=== PATIENT | female | born 1980 | race African-American/Black ===

== ENCOUNTER 2021-05-26 08:14 | Emergency (ER) | payer OTHER, SELFPAY ==
[2021-05-26] MEDS ORDERED: Meclizine HCl 25 MG TAB ONE (08:46)
[2021-05-26 09:08] LABS: #Eosinphils 0.3 thou/uL (0.0-0.7); #Monocytes 0.5 thou/uL (0.11-0.59); #Neutrophils 4.3 thou/uL (1.40-6.50); %Basophils 0.1 % (0.0-1.0); %Eosinophils 4.3 % (0.0-10.0); %Lymphocytes 16.8 % (21.0-51.0); %Monocytes 8.1 % (0.0-10.0); %Neutrophils 70.6 % (42.0-75.0); Hemoglobin 11.7 g/dL (12.0-16.0); Mean Corpuscular HGB CONC 32.7 g/dL (32.0-36.0); Mean Corpuscular Hemoglobin 27.5 pg (27.0-31.0); Mean Corpuscular Volume 84.2 fL (78.0-98.0); Platelet Count 267 thou/uL (130-400); RBC Distribution Width 13.5 % (11.5-14.5); Red Blood Cell (RBC) Count 4.27 mill/uL (4.20-5.40); White Blood Cell (WBC) Count 6.1 thou/uL (4.8-10.8)
[2021-05-26 09:24] LABS: BHCG - Serum Negative (NEGATIVE)
[2021-05-26 09:25] LABS: Pregs Control Background? CLEAR/WHITE (CLR/WHITE); Pregs Control Bar Appear? YES (CONTROL BAR)
[2021-05-26 09:30] LABS: ALT (SGPT) 22 U/L (8-55); AST (SGOT) 18 U/L (5-34); Albumin 4.2 g/dL (3.5-5.0); Alkaline Phosphatase 71 U/L (40-110); Anion Gap 14 mmol/L (10-20); BUN (Urea Nitrogen) 11 mg/dL (7.0-18.7); Bilirubin, Total 0.7 mg/dL (0.2-1.2); Calc. Creatinine Clearance 0 mL/min (70-130); Calcium 9.3 mg/dL (7.8-10.44); Carbon Dioxide 27 mmol/L (22-29); Chloride 102 mmol/L (98-107); Globulin 3.4 g/dL (2.4-3.5); Glucose 97 mg/dL (70-105); Potassium 3.5 mmol/L (3.5-5.1); Protein, Total 7.6 g/dL (6.0-8.3); Sodium 139 mmol/L (136-145)
[2021-05-26] MEDS ORDERED: Labetalol HCl 100 MG/20 ML VIAL ONE ×2 (10:57→10:58)
[2021-05-26] MEDS ORDERED: Acetaminophen 500 MG TAB ONE (12:30)
== END 2021-05-26 12:39 | disposition home or self-care (01) ==
LOC: ERS 08:14
DX: I10 Essential (primary) hypertension (principal); R42 Dizziness and giddiness
CPT/HCPCS: 36415; 80053; 84484; 84703; 85025; 93005; 96374

== ENCOUNTER 2021-06-11 15:21 | Emergency (ER) | payer OTHER, SELFPAY ==
[2021-06-11 18:00] LABS: Bilirubin Negative (Negative); Blood, Urine Negative (Negative); Clarity Clear (Clear); Glucose, Urine (Dipstick) Normal (Negative); Ketone, Urine Negative (Negative); Leukocyte Negative Leu/uL (Negative); Nitrite Negative (Negative); Protein, Urine (Dipstick) Negative (Neg-Trace); Specific Gravity, Urine 1.006 (1.002-1.036); Urobilinogen Normal mg/dL (Less than 2); pH, Urine 6.5 (5.0-9.0)
[2021-06-11 18:03] LABS: Pregnancy Test - Urine (BHCG) Negative (Negative); Pregu Control Background? CLEAR/WHITE (CLR/WHITE); Pregu Control Bar Appear? YES (CONTROL BAR); Specific Gravity 1.006 (1.002-1.036)
[2021-06-11] MEDS ORDERED: Ketorolac Tromethamine 30 MG/ML VIAL ONE (18:38)
== END 2021-06-11 18:55 | disposition home or self-care (01) ==
LOC: ERS 15:21
DX: M54.50 Low back pain, unspecified (principal); I10 Essential (primary) hypertension; V89.2XXA Person injured in unspecified motor-vehicle accident, traffic, initial encounter
CPT/HCPCS: 81003; 81025; 96372; 99283; J1885

== ENCOUNTER 2021-06-29 21:35 | Inpatient (IN) | payer BC, SELFPAY ==
[2021-06-29 22:34] LABS: #Eosinphils 0.3 thou/uL (0.0-0.7); #Lymphocytes 1.3 thou/uL (1.20-3.40); #Monocytes 0.4 thou/uL (0.11-0.59); #Neutrophils 2.6 thou/uL (1.40-6.50); %Basophils 0.8 % (0.0-1.0); %Lymphocytes 27.6 % (21.0-51.0); %Monocytes 9.2 % (0.0-10.0); %Neutrophils 56.4 % (42.0-75.0); Hemoglobin 12.3 g/dL (12.0-16.0); Mean Corpuscular HGB CONC 33.7 g/dL (32.0-36.0); Mean Corpuscular Hemoglobin 28.6 pg (27.0-31.0); Mean Corpuscular Volume 84.9 fL (78.0-98.0); Mean Platelet Volume 8.2 fL (7.4-10.4); Platelet Count 225 thou/uL (130-400); RBC Distribution Width 13.8 % (11.5-14.5); Red Blood Cell (RBC) Count 4.31 mill/uL (4.20-5.40); White Blood Cell (WBC) Count 4.6 thou/uL (4.8-10.8)
[2021-06-29 22:50] LABS: ALT (SGPT) 18 U/L (8-55); AST (SGOT) 18 U/L (5-34); Albumin 4.1 g/dL (3.5-5.0); Alkaline Phosphatase 71 U/L (40-110); Anion Gap 13 mmol/L (10-20); BUN (Urea Nitrogen) 15 mg/dL (7.0-18.7); Bilirubin, Total 0.5 mg/dL (0.2-1.2); Calc. Creatinine Clearance 0 mL/min (70-130); Calcium 9.3 mg/dL (7.8-10.44); Carbon Dioxide 28 mmol/L (22-29); Chloride 98 mmol/L (98-107); Globulin 3.1 g/dL (2.4-3.5); Glucose 110 mg/dL (70-105); Potassium 3.7 mmol/L (3.5-5.1); Protein, Total 7.2 g/dL (6.0-8.3); Sodium 135 mmol/L (136-145)
[2021-06-29] MEDS ORDERED: Amlodipine 10 MG TAB PO SCH (23:00)
[2021-06-29 23:10] LABS: CKMB 3.2 ng/mL (0-6.6)
[2021-06-29] MEDS ORDERED: diphenhydrAMINE 50 MG/ML VIAL ONE (23:48)
[2021-06-29] MEDS ORDERED: Metoclopramide HCl 10 MG/2 ML VIAL ONE (23:48)
[2021-06-29] MEDS ORDERED: Aspirin 325 MG TAB ONE (23:48)
[2021-06-30 04:36] LABS: Troponin I 0.052 ng/mL (< 0.028)
[2021-06-30 08:01] LABS: SARS-CoV-2 NAA Rapid Test DETECTED (NotDetected)
[2021-06-30 08:02] LABS: Troponin I 0.058 ng/mL (< 0.028)
[2021-06-30] MEDS ORDERED: Acetaminophen 325 MG TAB PO PRN (11:30)
[2021-06-30] MEDS ORDERED: Enoxaparin Sodium 40 MG/0.4 ML SYRINGE SC SCH (11:30)
[2021-06-30] MEDS ORDERED: Ondansetron PF 4 MG/2 ML Vial IVP PRN (11:30)
[2021-06-30] MEDS ORDERED: hydrALAZINE 20 MG/ML VIAL SLOW IVP PRN (11:42)
[2021-06-30] MEDS ORDERED: Amlodipine 10 MG TAB PO SCH (11:45)
[2021-06-30] MEDS ORDERED: Enoxaparin Sodium 40 MG/0.4 ML SYRINGE ONE (12:06)
[2021-06-30] MEDS ORDERED: Amlodipine 5 MG TAB ONE (12:06)
[2021-06-30 14:10] LABS: Troponin I 0.066 ng/mL (< 0.028)
[2021-06-30] MEDS ORDERED: hydrALAZINE 20 MG/ML VIAL ONE (15:43)
[2021-06-30] MEDS ORDERED: Meclizine HCl 25 MG TAB ONE ×2 (15:43→21:43)
[2021-06-30] MEDS: Meclizine HCl 25 MG TAB PO SCH ×2 (15:54→21:47)
[2021-06-30 20:05] LABS: Troponin I 0.075 ng/mL (< 0.028)
[2021-06-30] MEDS ORDERED: Acetaminophen 325 MG TAB ONE ×2 (21:44)
[2021-07-01 02:24] VITALS: BMI 41.4
[2021-07-01 06:25] LABS: Band 2 % (5-11); Eosinophils 5 % (0-10); Lymphocytes 31 % (21-51); MDiff Complete? YES; Mean Corpuscular HGB CONC 32.4 g/dL (32.0-36.0); Mean Corpuscular Hemoglobin 27.7 pg (27.0-31.0); Mean Corpuscular Volume 85.4 fL (78.0-98.0); Mean Platelet Volume 8.4 fL (7.4-10.4); Monocytes 4 % (0-10); Neutrophil 58 % (42-75); Platelet Count 241 thou/uL (130-400); Platelet Morphology Comment Appears Adequate; RBC Distribution Width 13.7 % (11.5-14.5); RBC Morphology Normal; Red Blood Cell (RBC) Count 4.34 mill/uL (4.20-5.40); White Blood Cell (WBC) Count 5.3 thou/uL (4.8-10.8)
[2021-07-01 06:34] LABS: Anion Gap 12 mmol/L (10-20); BUN (Urea Nitrogen) 12 mg/dL (7.0-18.7); Calc. Creatinine Clearance 156 mL/min (70-130); Calcium 9.1 mg/dL (7.8-10.44); Carbon Dioxide 26 mmol/L (22-29); Chloride 100 mmol/L (98-107); Glucose 96 mg/dL (70-105); Potassium 3.4 mmol/L (3.5-5.1); Sodium 135 mmol/L (136-145)
[2021-07-01] MEDS: Meclizine HCl 25 MG TAB PO SCH ×3 (09:07→20:13)
[2021-07-01] MEDS: Amlodipine 10 MG TAB PO SCH (09:07)
[2021-07-01] MEDS: Enoxaparin Sodium 40 MG/0.4 ML SYRINGE SC SCH (09:07)
[2021-07-02] MEDS ORDERED: Potassium Chloride 20 MEQ TAB PO SCH (08:30)
[2021-07-02] MEDS: Meclizine HCl 25 MG TAB PO SCH ×3 (09:12→21:32)
[2021-07-02] MEDS: Amlodipine 10 MG TAB PO SCH (09:12)
[2021-07-02] MEDS: Enoxaparin Sodium 40 MG/0.4 ML SYRINGE SC SCH (09:12)
[2021-07-02] MEDS ORDERED: hydrALAZINE 20 MG/ML VIAL SLOW IVP SCH (13:45)
[2021-07-02] MEDS ORDERED: Atorvastatin Calcium 20 MG TAB PO SCH (21:00)
[2021-07-03 03:47] VITALS: BP 144/90
[2021-07-03 05:41] VITALS: TEMP 98.5
[2021-07-03 06:36] LABS: Cardiac Risk 4.9 (Less than 4.5)
[2021-07-03] MEDS ORDERED: Aspirin 81 mg Enteric Coated Tablet PO SCH (09:00)
[2021-07-03] MEDS: Enoxaparin Sodium 40 MG/0.4 ML SYRINGE SC SCH (10:16)
[2021-07-03] MEDS: Amlodipine 10 MG TAB PO SCH (10:16)
[2021-07-03] MEDS: Meclizine HCl 25 MG TAB PO SCH (10:16)
== END 2021-07-03 11:07 | disposition home or self-care (01) | DRG 280 ==
LOC: ERS 21:35 → ERHOLD 06-30 00:57 → 2SW 07-01 02:03
PROVIDERS: ADMIT Student in an Organized Health Care Education/Training Program; ATTEND Family Medicine
DX: I16.0 Hypertensive urgency (principal); U07.1 COVID-19; I21.A1 Myocardial infarction type 2; Z68.41 Body mass index [BMI] 40.0-44.9, adult; I10 Essential (primary) hypertension; H81.10 Benign paroxysmal vertigo, unspecified ear; I08.1 Rheumatic disorders of both mitral and tricuspid valves; E66.9 Obesity, unspecified; E87.6 Hypokalemia; Z79.899 Other long term (current) drug therapy
CPT/HCPCS: 36415; 70450; 70551; 80048; 80053; 80061; 82553; 83880; 84484; 85007; 85025; 85027; 93005; 93306; 96374; 96375; J0360; J1200; J1650; J2765; U0002

== ENCOUNTER 2021-09-29 15:50 | Inpatient (IN) | payer BC ==
[~2021-09-29 15:50] MED LIST: Iopamidol-370 76% 500 ML 1 ML ONE
[2021-09-29 16:30] LABS: #Eosinphils 0.1 thou/uL (0.0-0.7); #Lymphocytes 1.4 thou/uL (1.20-3.40); #Monocytes 0.5 thou/uL (0.11-0.59); #Neutrophils 6.7 thou/uL (1.40-6.50); %Basophils 0.1 % (0.0-1.0); %Lymphocytes 15.7 % (21.0-51.0); %Monocytes 6.2 % (0.0-10.0); %Neutrophils 77.1 % (42.0-75.0); Hemoglobin 12.2 g/dL (12.0-16.0); Mean Corpuscular HGB CONC 32.2 g/dL (32.0-36.0); Mean Corpuscular Hemoglobin 27.6 pg (27.0-31.0); Mean Corpuscular Volume 85.7 fL (78.0-98.0); Mean Platelet Volume 7.8 fL (7.4-10.4); Platelet Count 245 thou/uL (130-400); RBC Distribution Width 14.1 % (11.5-14.5); Red Blood Cell (RBC) Count 4.43 mill/uL (4.20-5.40); White Blood Cell (WBC) Count 8.6 thou/uL (4.8-10.8)
[2021-09-29 16:55] LABS: ALT (SGPT) 15 U/L (8-55); AST (SGOT) 16 U/L (5-34); Albumin 4.3 g/dL (3.5-5.0); Alkaline Phosphatase 63 U/L (40-110); Anion Gap 16 mmol/L (10-20); BUN (Urea Nitrogen) 11 mg/dL (7.0-18.7); Bilirubin, Total 0.3 mg/dL (0.2-1.2); Calc. Creatinine Clearance 0 mL/min (70-130); Calcium 9.4 mg/dL (7.8-10.44); Carbon Dioxide 22 mmol/L (22-29); Chloride 101 mmol/L (98-107); Globulin 3.6 g/dL (2.4-3.5); Glucose 125 mg/dL (70-105); Lipase 47 U/L (8-78); Potassium 3.8 mmol/L (3.5-5.1); Protein, Total 7.9 g/dL (6.0-8.3); Sodium 135 mmol/L (136-145)
[2021-09-29] MEDS ORDERED: Ondansetron PF 4 MG/2 ML Vial ONE (18:50)
[2021-09-29 19:37] LABS: Bilirubin Negative (Negative); Blood, Urine Negative (Negative); Clarity Clear (Clear); Glucose, Urine (Dipstick) Normal (Negative); Ketone, Urine Negative (Negative); Leukocyte Negative Leu/uL (Negative); Nitrite Negative (Negative); Protein, Urine (Dipstick) Negative (Neg-Trace); Specific Gravity, Urine 1.004 (1.002-1.036); Urobilinogen Normal mg/dL (Less than 2)
[2021-09-29 19:40] LABS: Pregnancy Test - Urine (BHCG) Negative (Negative); Pregu Control Background? CLEAR/WHITE (CLR/WHITE); Pregu Control Bar Appear? YES (CONTROL BAR); Specific Gravity 1.004 (1.002-1.036)
[2021-09-29] MEDS ORDERED: Morphine 4 MG/ML VIAL SLOW IVP PRN ×2 (20:50→22:17)
[2021-09-29] MEDS ORDERED: Sodium Chloride 0.9% 1,000 ML IV SCH (21:00)
[2021-09-29 21:24] LABS: INR-International Normal Ratio 1.1; Prothrombin Time 14.7 sec (12.0-14.7)
[2021-09-29 21:25] LABS: PTT 67.9 sec (22.9-36.1)
[2021-09-29] MEDS ORDERED: Enoxaparin Sodium 100 MG/ML SYRINGE ONE (21:43)
[2021-09-29] MEDS ORDERED: Ondansetron PF 4 MG/2 ML Vial IVP PRN (22:18)
[2021-09-29] MEDS ORDERED: Ondansetron ODT 4 MG TAB PO PRN (22:18)
[2021-09-29] MEDS ORDERED: hydrALAZINE 20 MG/ML VIAL SLOW IVP PRN (22:19)
[2021-09-29] MEDS ORDERED: Valsartan 80 MG TAB PO SCH (23:30)
[2021-09-30 00:04] VITALS: BMI 39.7
[2021-09-30 06:00] LABS: Anion Gap 15 mmol/L (10-20); BUN (Urea Nitrogen) 10 mg/dL (7.0-18.7); Calc. Creatinine Clearance 101 mL/min (70-130); Calcium 9.1 mg/dL (7.8-10.44); Carbon Dioxide 22 mmol/L (22-29); Chloride 103 mmol/L (98-107); Glucose 114 mg/dL (70-105); Sodium 136 mmol/L (136-145)
[2021-09-30 06:04] LABS: #Eosinphils 0.1 thou/uL (0.0-0.7); #Lymphocytes 1.7 thou/uL (1.20-3.40); #Monocytes 0.5 thou/uL (0.11-0.59); #Neutrophils 4.8 thou/uL (1.40-6.50); %Basophils 0.3 % (0.0-1.0); %Lymphocytes 23.9 % (21.0-51.0); %Monocytes 6.9 % (0.0-10.0); %Neutrophils 66.9 % (42.0-75.0); Hemoglobin 12.4 g/dL (12.0-16.0); Mean Corpuscular HGB CONC 32.7 g/dL (32.0-36.0); Mean Corpuscular Hemoglobin 27.9 pg (27.0-31.0); Mean Corpuscular Volume 85.4 fL (78.0-98.0); Mean Platelet Volume 8.1 fL (7.4-10.4); Platelet Count 230 thou/uL (130-400); RBC Distribution Width 14.3 % (11.5-14.5); Red Blood Cell (RBC) Count 4.44 mill/uL (4.20-5.40); White Blood Cell (WBC) Count 7.1 thou/uL (4.8-10.8)
[2021-09-30] MEDS: Enoxaparin Sodium 120 MG/0.8 ML SYRINGE SC SCH ×2 (08:04→19:24)
[2021-09-30] MEDS: Amlodipine 10 MG TAB PO SCH (08:04)
[2021-09-30] MEDS ORDERED: Acetaminophen 325 MG TAB PO PRN (09:40)
[2021-09-30 10:14] LABS: INR-International Normal Ratio 1.2; Prothrombin Time 14.8 sec (12.0-14.7)
[2021-09-30 10:15] LABS: D-Dimer Test 0.46 *mcg/mL (0.27-0.43)
[2021-09-30] MEDS ORDERED: Atorvastatin Calcium 20 MG TAB PO SCH (21:00)
[2021-09-30] MEDS ORDERED: Valsartan 80 MG TAB PO SCH (21:00)
[2021-10-01 05:21] LABS: Anion Gap 14 mmol/L (10-20); BUN (Urea Nitrogen) 12 mg/dL (7.0-18.7); Calc. Creatinine Clearance 108 mL/min (70-130); Carbon Dioxide 25 mmol/L (22-29); Chloride 102 mmol/L (98-107); Glucose 104 mg/dL (70-105); Potassium 4.5 mmol/L (3.5-5.1); Sodium 136 mmol/L (136-145)
[2021-10-01] MEDS: Amlodipine 10 MG TAB PO SCH (08:40)
[2021-10-01] MEDS: Enoxaparin Sodium 120 MG/0.8 ML SYRINGE SC SCH (08:41)
[2021-10-01] MEDS ORDERED: Triamterene/Hydrochlorothiazide 37.5 mg/25 mg Tablet PO SCH (09:00)
[2021-10-01 11:11] VITALS: BP 158/101; TEMP 98.4
[2021-10-02 13:24] LABS: Protein C Activity 98 % (78-152)
[2021-10-02 13:26] LABS: HEX PHOS LA Tube 1 108.4 SEC; HEX PHOS LA Tube 2 58.6 SEC; Hexagonal Phospholipid Neut 49.8 SEC (0-8.0)
[2021-10-02 14:16] LABS: PTT 107.2 sec (22.9-36.1)
[2021-10-03 13:42] LABS: Hemoglobin A2 2.4 % (1.8-3.2); Hemoglobin F 0 % (0.0-2.0)
[2021-10-06 17:40] LABS: Cardiolipin IgM Ab 1.3 MPL-U/mL (<10 Negative); EliA APS New Method **** NEW METHOD ****
[2021-10-06 17:43] LABS: EliA APS New Method **** NEW METHOD ****; beta-2-Glycoprotein I IgM Abs Less than 2.9 U/mL (<7 Negative)
[2021-10-17 16:14] LABS: Activated Protein C Resistance 2.4 ratio (.)
== END 2021-10-01 15:34 | disposition home or self-care (01) | DRG 815 ==
LOC: ERS 15:50 → 2SW 20:40 → OBSVTOIN 10-01 10:51
PROVIDERS: ADMIT Student in an Organized Health Care Education/Training Program; ATTEND Internal Medicine
DX: D73.5 Infarction of spleen (principal); Z68.41 Body mass index [BMI] 40.0-44.9, adult; I10 Essential (primary) hypertension; E66.01 Morbid (severe) obesity due to excess calories; E78.5 Hyperlipidemia, unspecified; Z79.82 Long term (current) use of aspirin; Z79.899 Other long term (current) drug therapy
CPT/HCPCS: 36415; 74177; 80048; 80053; 81003; 81025; 83021; 83090; 83690; 85025; 85240; 85300; 85303; 85305; 85307; 85379; 85598; 85610; 85730; 86146; 86147; 93005; 96372; 96374; 96375; G0378; J1650; J2270; J2405; J7050; Q9967

== ENCOUNTER 2022-02-26 23:45 | Emergency (ER) | payer BC ==
[2022-02-27] MEDS ORDERED: Ketorolac Tromethamine 30 MG/ML VIAL ONE (05:27)
== END 2022-02-27 05:48 | disposition home or self-care (01) ==
LOC: ERS 23:45
DX: M25.561 Pain in right knee (principal)
CPT/HCPCS: 96372; J1885

== ENCOUNTER 2022-11-01 09:04 | Observation (INO) | payer BC ==
[2022-11-01 09:54] LABS: #Eosinphils 0.2 thou/uL (0.0-0.7); #Monocytes 0.5 thou/uL (0.11-0.59); #Neutrophils 3.7 thou/uL (1.40-6.50); %Basophils 0.6 % (0.0-1.0); %Eosinophils 3.9 % (0.0-10.0); %Lymphocytes 27.4 % (21.0-51.0); %Monocytes 7.7 % (0.0-10.0); %Neutrophils 60.1 % (42.0-75.0); Hemoglobin 13.1 g/dL (12.0-16.0); Mean Corpuscular HGB CONC 31.6 g/dL (32.0-36.0); Mean Corpuscular Hemoglobin 28.4 pg (27.0-31.0); Mean Platelet Volume 10.5 fL (7.4-10.4); Platelet Count 317 10x3/uL (130-400); Red Blood Cell (RBC) Count 4.61 mill/uL (4.20-5.40); White Blood Cell (WBC) Count 6.2 10x3/uL (4.8-10.8)
[2022-11-01 10:16] LABS: ALT (SGPT) 17 U/L (8-55); AST (SGOT) 19 U/L (5-34); Albumin 4.3 g/dL (3.5-5.0); Alkaline Phosphatase 79 U/L (40-110); Anion Gap 13 mmol/L (10-20); BUN (Urea Nitrogen) 11 mg/dL (7.0-18.7); Bilirubin, Total 0.3 mg/dL (0.2-1.2); Calc. Creatinine Clearance 0 mL/min (70-130); Calcium 9.5 mg/dL (7.8-10.44); Carbon Dioxide 27 mmol/L (22-29); Chloride 100 mmol/L (98-107); Estimated GFR 71; Globulin 3.6 g/dL (2.4-3.5); Glucose 97 mg/dL (70-105); Potassium 3.6 mmol/L (3.5-5.1); Protein, Total 7.9 g/dL (6.0-8.3); Sodium 136 mmol/L (136-145)
[2022-11-01 10:39] LABS: Bacteria/HPF None Seen HPF (None Seen); Bilirubin Negative (Negative); Blood, Urine 3+ (Negative); Clarity Clear (Clear); Glucose, Urine (Dipstick) Normal (Negative); Ketone, Urine Negative (Negative); Leukocyte Negative Leu/uL (Negative); Nitrite Negative (Negative); Protein, Urine (Dipstick) Negative (Neg-Trace); RBC/HPF None Seen HPF (0-3); Specific Gravity, Urine 1.002 (1.002-1.036); Squamous Epithelial 0-3 HPF (0-3); Urobilinogen Normal mg/dL (Less than 2); WBC/HPF 0-3 HPF (0-3); pH, Urine 5.5 (5.0-9.0)
[2022-11-01] MEDS ORDERED: Amlodipine 5 MG TAB ONE (11:29)
[2022-11-01] MEDS ORDERED: Metoclopramide HCl 10 MG/2 ML VIAL ONE (11:29)
[2022-11-01] MEDS ORDERED: diphenhydrAMINE 50 MG/ML VIAL ONE (11:29)
[2022-11-01] MEDS ORDERED: Acetaminophen 500 MG TAB ONE (11:29)
[2022-11-01] MEDS ORDERED: Aspirin Chewable 81 MG TAB ONE (12:37)
[2022-11-01 12:38] LABS: Specific Gravity 1.002 (1.002-1.036)
[2022-11-01] MEDS ORDERED: hydrALAZINE 20 MG/ML VIAL ONE (12:39)
[2022-11-01 12:45] LABS: Pregnancy Test - Urine (BHCG) Negative (Negative); Pregu Control Background? CLEAR/WHITE (CLR/WHITE); Pregu Control Bar Appear? YES (CONTROL BAR)
[2022-11-01] MEDS ORDERED: Ondansetron ODT 4 MG TAB PO PRN (13:04)
[2022-11-01] MEDS ORDERED: Ondansetron PF 4 MG/2 ML Vial IVP PRN (13:04)
[2022-11-01] MEDS ORDERED: hydrALAZINE 20 MG/ML VIAL SLOW IVP PRN (13:07)
[2022-11-01 14:25] LABS: Magnesium 2.1 mg/dL (1.6-2.6)
[2022-11-01 15:06] VITALS: BMI 43.8
[2022-11-01 18:40] LABS: INR-International Normal Ratio 1.2; Prothrombin Time 15.3 sec (12.0-14.7)
[2022-11-01] MEDS ORDERED: Warfarin Sodium 2.5 MG TAB PO SCH (19:00)
[2022-11-01] MEDS: Atorvastatin Calcium 20 MG TAB PO SCH (20:43)
[2022-11-01] MEDS: Acetaminophen 325 MG TAB PO PRN (23:46)
[2022-11-02 05:14] LABS: #Eosinphils 0.2 thou/uL (0.0-0.7); #Monocytes 0.6 thou/uL (0.11-0.59); #Neutrophils 4.1 thou/uL (1.40-6.50); %Basophils 0.3 % (0.0-1.0); %Eosinophils 3.6 % (0.0-10.0); %Lymphocytes 23.1 % (21.0-51.0); %Monocytes 9.2 % (0.0-10.0); %Neutrophils 63.5 % (42.0-75.0); Mean Corpuscular HGB CONC 31.4 g/dL (32.0-36.0); Mean Corpuscular Hemoglobin 27.7 pg (27.0-31.0); Mean Corpuscular Volume 88.3 fl (78.0-98.0); Mean Platelet Volume 10.6 fL (7.4-10.4); Platelet Count 319 10x3/uL (130-400); RBC Distribution Width 14.3 % (11.5-14.5); Red Blood Cell (RBC) Count 4.69 mill/uL (4.20-5.40); White Blood Cell (WBC) Count 6.4 10x3/uL (4.8-10.8)
[2022-11-02 05:29] LABS: INR-International Normal Ratio 1.1
[2022-11-02 05:37] LABS: Anion Gap 12 mmol/L (10-20); BUN (Urea Nitrogen) 9 mg/dL (7.0-18.7); Calc. Creatinine Clearance 166 mL/min (70-130); Calcium 9.1 mg/dL (7.8-10.44); Carbon Dioxide 24 mmol/L (22-29); Chloride 104 mmol/L (98-107); Estimated GFR 86; Glucose 109 mg/dL (70-105); Potassium 3.4 mmol/L (3.5-5.1); Sodium 137 mmol/L (136-145)
[2022-11-02] MEDS ORDERED: Potassium Chloride 20 MEQ TAB PO SCH (07:45)
[2022-11-02] MEDS ORDERED: Electrolyte Replacement Protocol 1 EACH FS SCH (07:45)
[2022-11-02] MEDS: NIFEdipine XL 90 MG TAB PO SCH (08:47)
[2022-11-02] MEDS: hydrALAZINE 25 MG TAB PO SCH ×3 (08:48→20:32)
[2022-11-02] MEDS: Triamterene/Hydrochlorothiazide 37.5 mg/25 mg Tablet PO SCH (08:48)
[2022-11-02] MEDS: Aspirin Chewable 81 MG TAB PO SCH (08:49)
[2022-11-02] MEDS: Acetaminophen 325 MG TAB PO PRN ×3 (08:49→20:33)
[2022-11-02] MEDS ORDERED: Amlodipine 10 MG TAB PO SCH (09:00)
[2022-11-02] MEDS ORDERED: Warfarin Sodium 5 MG TAB PO SCH (17:00)
[2022-11-02] MEDS: Atorvastatin Calcium 20 MG TAB PO SCH (20:34)
[2022-11-02] MEDS ORDERED: SUMAtriptan Succinate 6 MG/0.5 ML VIAL SC SCH (22:00)
[2022-11-03 05:11] LABS: #Eosinphils 0.1 thou/uL (0.0-0.7); #Monocytes 0.6 thou/uL (0.11-0.59); #Neutrophils 6.1 thou/uL (1.40-6.50); %Basophils 0.4 % (0.0-1.0); %Eosinophils 1.3 % (0.0-10.0); %Neutrophils 71.9 % (42.0-75.0); Hemoglobin 13.5 g/dL (12.0-16.0); Mean Corpuscular Hemoglobin 28.1 pg (27.0-31.0); Mean Corpuscular Volume 87.7 fl (78.0-98.0); Mean Platelet Volume 10.4 fL (7.4-10.4); Platelet Count 352 10x3/uL (130-400); RBC Distribution Width 14.4 % (11.5-14.5); Red Blood Cell (RBC) Count 4.81 mill/uL (4.20-5.40); White Blood Cell (WBC) Count 8.4 10x3/uL (4.8-10.8)
[2022-11-03 05:43] LABS: INR-International Normal Ratio 1.2; Prothrombin Time 15.4 sec (12.0-14.7)
[2022-11-03 05:44] LABS: Anion Gap 12 mmol/L (10-20); BUN (Urea Nitrogen) 11 mg/dL (7.0-18.7); Calc. Creatinine Clearance 144 mL/min (70-130); Calcium 9.6 mg/dL (7.8-10.44); Carbon Dioxide 25 mmol/L (22-29); Chloride 101 mmol/L (98-107); Estimated GFR 73; Glucose 116 mg/dL (70-105); Magnesium 2.1 mg/dL (1.6-2.6); Potassium 3.3 mmol/L (3.5-5.1); Sodium 135 mmol/L (136-145)
[2022-11-03] MEDS: Triamterene/Hydrochlorothiazide 37.5 mg/25 mg Tablet PO SCH (07:22)
[2022-11-03] MEDS: Aspirin Chewable 81 MG TAB PO SCH (07:23)
[2022-11-03] MEDS: hydrALAZINE 25 MG TAB PO SCH (07:24)
[2022-11-03] MEDS: NIFEdipine XL 90 MG TAB PO SCH (07:25)
[2022-11-03] MEDS: Acetaminophen 325 MG TAB PO PRN (07:26)
[2022-11-03 07:32] VITALS: BP 135/74
[2022-11-03 07:41] VITALS: TEMP 99
[2022-11-03] MEDS ORDERED: Potassium Chloride 20 MEQ TAB PO SCH (08:00)
[2022-11-04] MEDS ORDERED: Warfarin Sodium 2.5 MG TAB PO SCH (17:00)
== END 2022-11-03 10:46 | disposition home or self-care (01) ==
LOC: ERS 09:04 → 2SW 13:01
PROVIDERS: ADMIT Family Medicine; ATTEND Family Medicine
DX: I16.0 Hypertensive urgency (principal); R07.89 Other chest pain; E78.5 Hyperlipidemia, unspecified; E87.6 Hypokalemia; I11.9 Hypertensive heart disease without heart failure; E66.9 Obesity, unspecified; Z68.38 Body mass index [BMI] 38.0-38.9, adult; Z86.79 Personal history of other diseases of the circulatory system; Z79.01 Long term (current) use of anticoagulants; Z79.899 Other long term (current) drug therapy
CPT/HCPCS: 36415; 70450; 71045; 76770; 80048; 80053; 81003; 81015; 81025; 82553; 83735; 84443; 84484; 85025; 85610; 93005; 93306; 93976; 94760; 96365; 96372; 96375; 96376; G0378; J0360; J1200; J2765; J3030; Q0162

== ENCOUNTER 2023-01-30 17:46 | Emergency (ER) | payer BC ==
[2023-01-30] MEDS ORDERED: Acetaminophen 500 MG TAB ONE (19:56)
[2023-01-30 20:53] LABS: SARS-CoV-2 NAA Rapid Test DETECTED (NotDetected)
== END 2023-01-30 21:09 | disposition home or self-care (01) ==
LOC: ERS 17:46
DX: U07.1 COVID-19 (principal); I10 Essential (primary) hypertension
CPT/HCPCS: 99283

== ENCOUNTER 2023-03-04 10:04 | Emergency (ER) | payer BC ==
[2023-03-04 10:49] LABS: #Eosinphils 0.1 thou/uL (0.0-0.7); #Monocytes 0.7 thou/uL (0.11-0.59); #Neutrophils 6.1 thou/uL (1.40-6.50); %Basophils 0.2 % (0.0-1.0); %Eosinophils 0.6 % (0.0-10.0); %Lymphocytes 15.6 % (21.0-51.0); %Monocytes 7.9 % (0.0-10.0); %Neutrophils 74.2 % (42.0-75.0); Hematocrit 16.4 % (36.0-47.0); Hemoglobin 5.1 g/dL (12.0-16.0); Mean Corpuscular HGB CONC 31.1 g/dL (32.0-36.0); Mean Corpuscular Hemoglobin 28.5 pg (27.0-31.0); Mean Corpuscular Volume 91.6 fl (78.0-98.0); Mean Platelet Volume 10.3 fL (7.4-10.4); Platelet Count 290 10x3/uL (130-400); RBC Distribution Width 15.7 % (11.5-14.5); Red Blood Cell (RBC) Count 1.79 mill/uL (4.20-5.40); White Blood Cell (WBC) Count 8.3 10x3/uL (4.8-10.8)
[2023-03-04 11:08] LABS: BHCG - Serum Negative (NEGATIVE); Pregs Control Background? CLEAR/WHITE (CLR/WHITE); Pregs Control Bar Appear? YES (CONTROL BAR)
[2023-03-04 11:15] LABS: ALT (SGPT) 10 U/L (8-55); AST (SGOT) 12 U/L (5-34); Albumin 3.7 g/dL (3.5-5.0); Alkaline Phosphatase 44 U/L (40-110); Anion Gap 11 mmol/L (10-20); BUN (Urea Nitrogen) 5 mg/dL (7.0-18.7); Bilirubin, Total 0.5 mg/dL (0.2-1.2); Calc. Creatinine Clearance 0 mL/min (70-130); Calcium 8.7 mg/dL (7.8-10.44); Carbon Dioxide 25 mmol/L (22-29); Chloride 103 mmol/L (98-107); Estimated GFR 75; Globulin 2.5 g/dL (2.4-3.5); Glucose 110 mg/dL (70-105); Lipase 23 U/L (8-78); Potassium 3.7 mmol/L (3.5-5.1); Protein, Total 6.2 g/dL (6.0-8.3); Sodium 135 mmol/L (136-145)
[2023-03-04 11:41] LABS: INR-International Normal Ratio 2.7; Prothrombin Time 29.8 sec (12.0-14.7)
[2023-03-04 11:42] LABS: PTT 48.6 sec (22.9-36.1)
[2023-03-04 12:15] LABS: Bacteria/HPF None Seen HPF (None Seen); Bilirubin Negative (Negative); Blood, Urine 1+ (Negative); CAUTI Indications for Culture Acute Hematuria; Clarity Clear (Clear); Glucose, Urine (Dipstick) Normal (Negative); Ketone, Urine Negative (Negative); Leukocyte Negative Leu/uL (Negative); Nitrite Negative (Negative); Protein, Urine (Dipstick) Negative (Neg-Trace); Specific Gravity, Urine 1.008 (1.002-1.036); Squamous Epithelial 0-3 HPF (0-3); Urobilinogen Normal mg/dL (Less than 2); WBC/HPF 0-3 HPF (0-3); pH, Urine 7.5 (5.0-9.0)
[2023-03-04 12:26] LABS: Urine Culture Reflex No No
[2023-03-04] MEDS ORDERED: Acetaminophen 500 MG TAB ONE (13:26)
== END 2023-03-04 15:42 | disposition short-term general hospital (02) ==
LOC: ERS 10:04
DX: N93.9 Abnormal uterine and vaginal bleeding, unspecified (principal); D64.9 Anemia, unspecified; I10 Essential (primary) hypertension; Z79.82 Long term (current) use of aspirin; Z79.01 Long term (current) use of anticoagulants
CPT/HCPCS: 36415; 36430; 70450; 76856; 80053; 81001; 83690; 84703; 85025; 85610; 85730; 86850; 86900; 86901; 93005; J1050; P9016

== ENCOUNTER 2023-07-24 16:49 | Emergency (ER) | payer BC ==
[2023-07-24 17:55] LABS: #Eosinphils 0.2 thou/uL (0.0-0.7); #Monocytes 0.5 thou/uL (0.11-0.59); #Neutrophils 4.9 thou/uL (1.40-6.50); %Basophils 0.6 % (0.0-1.0); %Eosinophils 2.5 % (0.0-10.0); %Lymphocytes 20.3 % (21.0-51.0); %Monocytes 7.5 % (0.0-10.0); Hematocrit 39.7 % (36.0-47.0); Hemoglobin 12.7 g/dL (12.0-16.0); Mean Corpuscular Hemoglobin 26.6 pg (27.0-31.0); Mean Corpuscular Volume 83.2 fl (78.0-98.0); Mean Platelet Volume 10.8 fL (7.4-10.4); Platelet Count 356 10x3/uL (130-400); RBC Distribution Width 15.7 % (11.5-14.5); Red Blood Cell (RBC) Count 4.77 mill/uL (4.20-5.40); White Blood Cell (WBC) Count 7.1 10x3/uL (4.8-10.8)
[2023-07-24 18:09] LABS: INR-International Normal Ratio 3.4; Prothrombin Time 34.5 sec (12.0-14.7)
[2023-07-24 18:10] LABS: PTT 73.2 sec (22.9-36.1)
[2023-07-24 18:19] LABS: ALT (SGPT) 12 U/L (8-55); AST (SGOT) 13 U/L (5-34); Albumin 4.5 g/dL (3.5-5.0); Alkaline Phosphatase 85 U/L (40-110); Anion Gap 13 mmol/L (10-20); BUN (Urea Nitrogen) 13 mg/dL (7.0-18.7); Bilirubin, Total 0.5 mg/dL (0.2-1.2); Calc. Creatinine Clearance 0 mL/min (70-130); Calcium 9.4 mg/dL (7.8-10.44); Carbon Dioxide 27 mmol/L (22-29); Chloride 102 mmol/L (98-107); Estimated GFR 68; Globulin 3.4 g/dL (2.4-3.5); Glucose 100 mg/dL (70-105); Potassium 3.5 mmol/L (3.5-5.1); Protein, Total 7.9 g/dL (6.0-8.3); Sodium 138 mmol/L (136-145)
== END 2023-07-24 18:46 | disposition home or self-care (01) ==
LOC: ERS 16:49
DX: M79.605 Pain in left leg (principal); I10 Essential (primary) hypertension
CPT/HCPCS: 36415; 80053; 85025; 85610; 85730

== ENCOUNTER 2025-02-02 12:35 | Emergency (ER) | payer BC ==
[2025-02-02] MEDS ORDERED: Aspirin Chewable 81 MG TAB ONE (13:01)
[2025-02-02] MEDS ORDERED: Dexamethasone 10 MG/ML VIAL ONE (13:56)
[2025-02-02 14:02] LABS: #Basophils 0.03 10x3/uL (0.0-0.2); #Eosinophils 0.34 10x3/uL (0.0-0.7); #Monocytes 0.60 10x3/uL (0.11-0.59); #Neutrophils 4.58 10x3/uL (1.40-6.50); %Basophils 0.4 % (0.0-1.0); %Eosinophils 4.9 % (0.0-10.0); %Lymphocytes 20.0 % (21.0-51.0); %Monocytes 8.6 % (0.0-10.0); %Neutrophils 66.0 % (42.0-75.0); Hematocrit 40.1 % (36.0-47.0); Hemoglobin 12.8 g/dL (12.0-16.0); Mean Corpuscular Hemoglobin 28.6 pg (27.0-31.0); Mean Corpuscular Volume 89.5 fL (78.0-98.0); Platelet Count 321 10x3/uL (130-400); Red Blood Cell (RBC) Count 4.48 mill/uL (4.20-5.40); White Blood Cell (WBC) Count 6.95 10x3/uL (4.8-10.8)
[2025-02-02 14:09] LABS: CAUTI Indications for Culture Pelvic or flank pain; Glucose, Urine (Dipstick) Normal (Negative); Leukocyte Negative Leu/uL (Negative); Protein, Urine (Dipstick) Negative (Neg-Trace); RBC/HPF 0-3 HPF (0-3); Specific Gravity, Urine 1.017 (1.002-1.036); WBC/HPF 0-3 HPF (0-3)
[2025-02-02 14:10] LABS: Bacteria/HPF 1+ HPF (None Seen)
[2025-02-02 14:11] LABS: Urine Culture Reflex No No
[2025-02-02 14:16] LABS: INR-International Normal Ratio 3.3; Prothrombin Time 33.4 sec (12.0-14.7)
[2025-02-02 14:17] LABS: PTT 72.3 sec (22.9-36.1)
[2025-02-02 14:23] LABS: ALT (SGPT) 17 U/L (Less than 34); AST (SGOT) 18 U/L (11-34); Albumin 4.2 g/dL (3.1-4.5); Alkaline Phosphatase 89 U/L (40-110); Anion Gap 11 mmol/L (10-20); BUN (Urea Nitrogen) 12 mg/dL (7.0-18.7); Bilirubin, Total 0.7 mg/dL (0.3-1.2); Calc. Creatinine Clearance 0 mL/min (70-130); Calcium 9.1 mg/dL (7.8-10.44); Carbon Dioxide 29 mmol/L (22-29); Chloride 101 mmol/L (98-107); Globulin 3.7 g/dL (2.4-3.5); Glucose 77 mg/dL (70-105); Lipase 58 U/L (8-78); Magnesium 2.1 mg/dL (1.6-2.6); Potassium 3.7 mmol/L (3.5-5.1); Sodium 137 mmol/L (136-145)
== END 2025-02-02 14:43 | disposition home or self-care (01) ==
LOC: ERS 12:35
DX: M62.838 Other muscle spasm (principal); I10 Essential (primary) hypertension; Z79.899 Other long term (current) drug therapy
CPT/HCPCS: 71045; 80053; 81001; 83690; 83735; 83880; 84484; 85025; 85610; 85730; 93005; 96374; J1100

== ENCOUNTER 2025-02-10 08:42 | Emergency (ER) | payer BC ==
[2025-02-10 12:28] LABS: #Basophils 0.08 10x3/uL (0.0-0.2); #Eosinophils 0.29 10x3/uL (0.0-0.7); #Monocytes 0.54 10x3/uL (0.11-0.59); #Neutrophils 5.64 10x3/uL (1.40-6.50); %Basophils 0.9 % (0.0-1.0); %Eosinophils 3.3 % (0.0-10.0); %Lymphocytes 24.4 % (21.0-51.0); %Monocytes 6.2 % (0.0-10.0); %Neutrophils 64.6 % (42.0-75.0); Hematocrit 39.6 % (36.0-47.0); Hemoglobin 12.1 g/dL (12.0-16.0); Mean Corpuscular Hemoglobin 27.9 pg (27.0-31.0); Mean Corpuscular Volume 91.5 fL (78.0-98.0); Platelet Count 347 10x3/uL (130-400); Red Blood Cell (RBC) Count 4.33 mill/uL (4.20-5.40); White Blood Cell (WBC) Count 8.73 10x3/uL (4.8-10.8)
[2025-02-10 12:44] LABS: ALT (SGPT) 20 U/L (Less than 34); AST (SGOT) 16 U/L (11-34); Albumin 4.1 g/dL (3.1-4.5); Alkaline Phosphatase 84 U/L (40-110); Anion Gap 12 mmol/L (10-20); BUN (Urea Nitrogen) 14 mg/dL (7.0-18.7); Bilirubin, Total 0.5 mg/dL (0.3-1.2); Calc. Creatinine Clearance 0 mL/min (70-130); Calcium 8.8 mg/dL (7.8-10.44); Carbon Dioxide 28 mmol/L (22-29); Chloride 104 mmol/L (98-107); Globulin 2.9 g/dL (2.4-3.5); Glucose 89 mg/dL (70-105); Potassium 3.6 mmol/L (3.5-5.1); Sodium 140 mmol/L (136-145)
[2025-02-10] MEDS ORDERED: Cyclobenzaprine 10 MG TAB ONE (14:40)
[2025-02-10] MEDS ORDERED: Dexamethasone 10 MG/ML VIAL ONE (17:19)
== END 2025-02-10 17:30 | disposition home or self-care (01) ==
LOC: ERS 08:42
DX: M25.511 Pain in right shoulder (principal); M54.2 Cervicalgia; I10 Essential (primary) hypertension; Z79.899 Other long term (current) drug therapy; Z79.01 Long term (current) use of anticoagulants
CPT/HCPCS: 36415; 80053; 84484; 85025; 93005; 96372; 99283; J1100; J2270